=== PATIENT | male | born 1975 | race Caucasian/White ===

== ENCOUNTER 2019-12-23 10:42 | Outpatient (CLI) | payer MEDICAID, SELFPAY ==
--- NOTE | 2019-12-23 10:49 | XRR_ITS ---
PROCEDURE INFORMATION: Exam: XR Chest, 2 Views Exam date and time: 12/23/2019 10:59 AM Age: 44 years old Clinical indication: Other: Chronic chest congestion; Additional info: Chronic chest congestion x 3 weeks TECHNIQUE: Imaging protocol: XR of the chest Views: 2 views. COMPARISON: No relevant prior studies available. FINDINGS: Lungs: Unremarkable. No consolidation. Pleural space: Unremarkable. No pleural effusion. No pneumothorax. Heart/Mediastinum: Unremarkable. No cardiomegaly. Bones/joints: Unremarkable. XR/XR chest 2V* [id number] IMPRESSION: No acute findings.
== END 2019-12-23 10:43 | disposition home or self-care (01) ==
PROVIDERS: Visit Provider Family Medicine
DX: R09.89 Other specified symptoms and signs involving the circulatory and respiratory systems (principal)
CPT/HCPCS: 71046

== ENCOUNTER 2020-06-04 16:09 | Outpatient (CLI) | payer MEDICAID, SELFPAY ==
--- NOTE | 2020-06-04 16:16 | XR_ITS ---
WS: [id number] Chest 2 views, 06/04/2020 Clinical Data: ALLERGIC RHINITIS DUE TO POLLEN-COUGH Comparison: PA and lateral chest, 12/23/2019. Findings: No nodules, masses or effusions are seen. The heart is normal. The pulmonary vascularity is not increased. No pneumonia or pneumothorax is seen. XR/XR chest 2V* [id number] Impression: Negative chest.
== END 2020-06-04 16:10 | disposition home or self-care (01) ==
LOC: RAD 16:12
PROVIDERS: PCP Family Medicine; Visit Provider Otolaryngology
DX: J30.1 Allergic rhinitis due to pollen (principal); R05 Cough
CPT/HCPCS: 71046

== ENCOUNTER 2020-07-15 12:59 | Outpatient (CLI) | payer MEDICAID, SELFPAY ==
--- NOTE | 2020-07-15 14:23 | PFTS_ITS ---
Date of Study:07/15/20 Date of Dictation: MECHANICS: Forced vital capacity (FVC) is reduced. Forced expiratory volume in one second (FEV1) is normal. FEV1/FVC is normal. FLOW VOLUME LOOP: Normal. LUNG VOLUMES: Total lung capacity (TLC) is . Residual volume (RV) is normal. DIFFUSING CAPACITY FOR CARBON MONOXIDE: . INTERPRETATION: Spirometry is consistent with minimal restriction. This is not supported by the normal lung volumes. This could qualify as nonspecific ventilatory limitation. Lung volumes are normal. Gas exchange (DLCO) is normal. MTDD
== END 2020-07-15 13:00 | disposition home or self-care (01) ==
LOC: RT 13:02
PROVIDERS: PCP Family Medicine; Visit Provider Specialist
DX: J30.1 Allergic rhinitis due to pollen (principal); R05 Cough
CPT/HCPCS: 94010; 94726; 94729

== ENCOUNTER → 2020-07-24 10:30 | Outpatient (BNVA) | payer MEDICAID, SELFPAY | PROVIDERS: PCP Family Medicine; Visit Provider Internal Medicine | DX: M06.9 Rheumatoid arthritis, unspecified (principal); D86.9 Sarcoidosis, unspecified; M32.9 Systemic lupus erythematosus, unspecified; Z79.52 Long term (current) use of systemic steroids | CPT/HCPCS: 99214 ==

== ENCOUNTER 2020-07-24 11:43 | Outpatient (CLI) | payer MEDICAID, SELFPAY ==
--- NOTE | 2020-07-24 11:50 | XR_ITS ---
WS: [id number] Left foot, 2 views, 07/24/2020 Clinical Data: foot pain Comparison: None. Findings: No fractures or dislocations are seen. No bone destruction or erosion is noted. The joint spaces and soft tissues are normal. No periarticular demineralization or calcifications are seen. XR/XR foot LT 2V [id number] Impression: Negative left foot.
--- NOTE | 2020-07-24 11:50 | XR_ITS ---
WS: [id number] Right foot, 2 views, 07/24/2020 Clinical Data: foot pain Comparison: Right foot, 01/10/2019 Findings: No fractures or dislocations are seen. No bone destruction or erosion is noted. The joint spaces and soft tissues are normal. No periarticular demineralization or calcifications are seen. XR/XR foot RT 2V [id number] Impression: Negative right foot.
--- NOTE | 2020-07-24 11:50 | XR_ITS ---
WS: [id number] Left hand, 2 views, 07/24/2020 Clinical Data: hand pain Comparison: Left hand, 01/10/2019 Findings: No fractures or dislocations are seen. The soft tissues are unremarkable. The joint spaces are normal No periarticular demineralization or calcifications are seen. XR/XR hand LT 2V [id number] Impression: Negative left hand.
--- NOTE | 2020-07-24 11:50 | XR_ITS ---
WS: [id number] Right hand, 2 views, 07/24/2020 Clinical Data: hand pain Comparison: Right hand, 01/10/2019. Findings: No fractures or dislocations are seen. The soft tissues are unremarkable. The joint space s are normal No periarticular demineralization or calcifications are seen. XR/XR hand RT 2V [id number] Impression: Negative right hand.
[2020-07-24 14:22] LABS: Hepatitis B Core AB, Total Non-Reactive (Nonreactive); Hepatitis B Surface Antigen Non-Reactive (Nonreactive); Hepatitis C Virus Antibody Non-Reactive (Nonreactive)
[2020-07-27 11:47] LABS: COMPLEMENT COMPONENT C3C 160 mg/dL (82-185); COMPLEMENT COMPONENT C4C 32 mg/dL (15-53); Quantiferon Mitogen >10.00 IU/mL; Quantiferon Nil 0.01 IU/mL; Quantiferon Plus TB1 0.01 IU/mL; Quantiferon Plus TB2 0.01 IU/mL; Quantiferon TB Gold NEGATIVE (NEGATIVE)
[2020-07-27 12:47] LABS: COMPLEMENT, TOTAL (CH50) >60 U/mL (31-60)
[2020-07-27 14:13] LABS: Cyclic Citrullinated Peptide 81 UNITS
[2020-07-28 14:28] LABS: ANA SCREEN, IFA NEGATIVE (NEGATIVE)
[2020-07-28 14:58] LABS: CENTROMERE B ANTIBODY <1.0 NEG AI (<1.0 NEG); JO-1 ANTIBODY <1.0 NEG AI (<1.0 NEG); RNP ANTIBODY <1.0 NEG AI (<1.0 NEG); SCL-70 ANTIBODY <1.0 NEG AI (<1.0 NEG); SJOGREN'S ANTIBODY (SS-A) <1.0 NEG AI (<1.0 NEG); SM ANTIBODY <1.0 NEG AI (<1.0 NEG); THYROID PEROXIDASE ANTIBODIES 7 IU/mL (<9)
[2020-08-02 05:52] LABS: DNA AB (DS) CRITHIDIA,IFA NEGATIVE (NEGATIVE)
== END 2020-07-24 11:44 | disposition home or self-care (01) ==
LOC: RAD 11:47
PROVIDERS: PCP Family Medicine; Visit Provider Internal Medicine
DX: M06.9 Rheumatoid arthritis, unspecified (principal); Z51.81 Encounter for therapeutic drug level monitoring; M32.9 Systemic lupus erythematosus, unspecified; D86.9 Sarcoidosis, unspecified; M79.642 Pain in left hand; M79.641 Pain in right hand; M79.672 Pain in left foot; M79.671 Pain in right foot
CPT/HCPCS: 36415; 73120; 73620; 86431; 86480; 86704; 86803; 87340

== ENCOUNTER 2021-04-16 11:13 | Outpatient (CLI) | payer MEDICAID, SELFPAY ==
--- NOTE | 2021-04-16 11:20 | XR_ITS ---
WS: [id number] Right shoulder, 2 views, 04/16/2021 Clinical Data: BILATERAL SHOULDER PAIN Comparison: Right shoulder, 01/10/2019. Findings: No fractures or dislocations are seen. The AC joint shows mild osteoarthritis with a calcification in the superior aspect of the joint space. The adjacent right clavicle, right scapula and ribs are norm al. The soft tissues are unremarkable. XR/XR shoulder RT min 2V* [id number] Impression: 1. Negative right shoulder. 2. 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
--- NOTE | 2021-04-16 11:20 | XR_ITS ---
WS: [id number] Left shoulder, 2 views, 04/16/2021 Clinical Data: BILATERAL SHOULDER PAIN Comparison: Left shoulder, 01/10/2019. Findings: No fractures or dislocations are seen. The AC joint is normal. The adjacent left clavicle, left scapu la and ribs are normal. The soft tissues are unremarkable. XR/XR shoulder LT min 2V* [id number] Impression: Negative left shoulder.
== END 2021-04-16 11:14 | disposition home or self-care (01) ==
PROVIDERS: PCP Family Medicine; Visit Provider Family Medicine
DX: M25.511 Pain in right shoulder (principal); M25.512 Pain in left shoulder
CPT/HCPCS: 73030

== ENCOUNTER → 2021-06-10 10:27 | Outpatient (BNVA) | payer MEDICAID, SELFPAY | PROVIDERS: PCP Family Medicine; Visit Provider Internal Medicine | DX: M06.9 Rheumatoid arthritis, unspecified (principal); Z79.899 Other long term (current) drug therapy | CPT/HCPCS: 99213; 99214 ==

== ENCOUNTER → 2021-10-13 12:37 | Outpatient (BNVA) | payer MEDICAID, SELFPAY | PROVIDERS: PCP Family Medicine; Visit Provider Internal Medicine | DX: M16.9 Osteoarthritis of hip, unspecified (principal); M05.9 Rheumatoid arthritis with rheumatoid factor, unspecified; Z79.899 Other long term (current) drug therapy; Z87.891 Personal history of nicotine dependence | CPT/HCPCS: 99214 ==

== ENCOUNTER → 2021-12-06 13:18 | Outpatient (BNVA) | payer MEDICAID, SELFPAY | PROVIDERS: PCP Family Medicine; Visit Provider Internal Medicine Critical Care Medicine | DX: J98.4 Other disorders of lung (principal); G47.33 Obstructive sleep apnea (adult) (pediatric); M06.9 Rheumatoid arthritis, unspecified; Z87.891 Personal history of nicotine dependence | CPT/HCPCS: 99204 ==

== ENCOUNTER → 2022-02-02 14:47 | Outpatient (BNVA) | payer MEDICAID, SELFPAY | PROVIDERS: PCP Family Medicine; Visit Provider Internal Medicine | DX: M16.9 Osteoarthritis of hip, unspecified (principal); M05.9 Rheumatoid arthritis with rheumatoid factor, unspecified; Z79.899 Other long term (current) drug therapy; Z87.891 Personal history of nicotine dependence | CPT/HCPCS: 80053; 85025; 85651; 86140; 99214 ==

== ENCOUNTER → 2022-03-07 10:46 | Outpatient (BNVA) | payer MEDICAID, SELFPAY | PROVIDERS: PCP Family Medicine; Visit Provider Internal Medicine Critical Care Medicine | DX: J98.4 Other disorders of lung (principal); G47.33 Obstructive sleep apnea (adult) (pediatric); M06.9 Rheumatoid arthritis, unspecified; Z87.891 Personal history of nicotine dependence; F12.90 Cannabis use, unspecified, uncomplicated | CPT/HCPCS: 71046; 99214 ==

== ENCOUNTER 2022-03-09 11:35 | Outpatient (CLI) | payer MEDICAID, SELFPAY ==
--- NOTE | 2022-03-09 11:47 | XR_ITS ---
WS: [id number] Exam: XR chest 2V* [id number] Date/Time of Exam: 03/09/2022 11:47 AM Reason For Exam: Shortness of breath Comparison 06/04/2029 The lungs are fully expanded and clear. Normal cardiomediastinal silhouette. No pleural effusions. Se veral calcified granulomas noted bilaterally. Bony structures are intact. XR/XR chest 2V* [id number] IMPRESSION: 1. No acute cardiopulmonary finding. No change.
== END 2022-03-09 11:36 | disposition home or self-care (01) ==
LOC: RAD 11:41
PROVIDERS: PCP Family Medicine; Visit Provider Internal Medicine Critical Care Medicine
DX: J98.4 Other disorders of lung (principal)
CPT/HCPCS: 71046

== ENCOUNTER → 2022-05-09 14:32 | Outpatient (BNVA) | payer MEDICAID, SELFPAY | PROVIDERS: PCP Family Medicine; Visit Provider Internal Medicine | DX: M05.9 Rheumatoid arthritis with rheumatoid factor, unspecified (principal); M16.9 Osteoarthritis of hip, unspecified | CPT/HCPCS: 99213; 99214 ==

== ENCOUNTER → 2022-09-05 14:14 | Outpatient (BNVA) | payer MEDICAID, SELFPAY | PROVIDERS: PCP Family Medicine; Visit Provider Internal Medicine | DX: M16.9 Osteoarthritis of hip, unspecified (principal); M05.9 Rheumatoid arthritis with rheumatoid factor, unspecified; Z87.891 Personal history of nicotine dependence; E66.3 Overweight; Z68.42 Body mass index [BMI] 45.0-49.9, adult | CPT/HCPCS: 80053; 85025; 85651; 86140; 99213 ==

== ENCOUNTER → 2022-12-07 16:19 | Outpatient (BNVA) | payer MEDICAID, SELFPAY | PROVIDERS: PCP Family Medicine; Visit Provider Internal Medicine Pulmonary Disease | DX: T78.40XA Allergy, unspecified, initial encounter (principal); J98.4 Other disorders of lung; J44.9 Chronic obstructive pulmonary disease, unspecified | CPT/HCPCS: 36415; 82785; 85025; 86003; 99214 ==

== ENCOUNTER → 2023-02-21 13:39 | Outpatient (BNVA) | payer MEDICAID, SELFPAY | PROVIDERS: Visit Provider Internal Medicine | DX: J98.4 Other disorders of lung (principal); M05.9 Rheumatoid arthritis with rheumatoid factor, unspecified; M16.9 Osteoarthritis of hip, unspecified | CPT/HCPCS: 99214 ==

== ENCOUNTER 2023-06-06 12:44 | Outpatient (CLI) | payer MEDICAID, SELFPAY ==
[2023-06-06 13:14] VITALS: PULSE 83; RESP 18; O2SAT 98
[2023-06-06] MEDS: albuterol 2.5 mg/3 mL Neb INHALATION (13:14)
[2023-06-06 13:19] VITALS: PULSE 83
== END 2023-06-06 12:45 | disposition home or self-care (01) ==
PROVIDERS: Visit Provider Internal Medicine Pulmonary Disease
DX: R06.02 Shortness of breath (principal)
CPT/HCPCS: 94060; 94618; 94726; 94729

== ENCOUNTER → 2023-07-14 10:50 | Outpatient (BNVA) | payer MEDICAID, SELFPAY | PROVIDERS: Visit Provider Internal Medicine Pulmonary Disease | DX: J98.4 Other disorders of lung (principal); R60.9 Edema, unspecified; J44.9 Chronic obstructive pulmonary disease, unspecified; G47.33 Obstructive sleep apnea (adult) (pediatric); M06.9 Rheumatoid arthritis, unspecified; R09.02 Hypoxemia; Z99.89 Dependence on other enabling machines and devices; F17.210 Nicotine dependence, cigarettes, uncomplicated; M25.552 Pain in left hip; E66.9 Obesity, unspecified; Z68.42 Body mass index [BMI] 45.0-49.9, adult | CPT/HCPCS: 99214 ==

== ENCOUNTER 2023-07-28 11:08 | Outpatient (CLI) | payer MEDICAID, SELFPAY ==
--- NOTE | 2023-07-28 11:45 | USCV_ITS ---
Giovanni Flores Age: 47 Gender: M : 1975 Exam Date: 07/28/2023 11:26 Ordering Phys: Lencho Zuniga MD Technologist: Aquilino Fischer [place]am [place] [facility] [place]ication: assess LV function BP: 128 / 98 HR: 71 Rhythm: Sinus Technical Quality: Adequate MEASUREMENTS (Male / Female) Normal Values 2D ECHO LVOT Diameter 2.5 cm LV Ejection Fraction MOD 2C 67.6 % LV Ejection Fraction 2C AL 70.5 % LA Diameter 4.0 cm LA Width 3.6 cm LA Height 5.3 cm RA Width 3.3 cm RA Height 5.0 cm Aorta at Sinotubular Diameter 2.8 cm M-MODE Aortic Annulus Diameter 2.8 cm LA Ao Ratio MM 1.3 MV E Point Septal Separation 0.4 cm DOPPLER AV Peak Velocity 108.0 cm/s LVOT Peak Velocity 79.0 cm/s AV Area Cont Eq vti 3.4 cm squared AV Area Cont Eq pk 3.6 cm squared MV Peak Velocity 82.0 cm/s MV Area PHT 5.8 cm squared Mitral E to A Ratio 1.0 MV E' Velocity 38.5 cm/s Mitral E to MV E' Ratio 6.6 Mitral E to LV E' Lateral Ratio 6.9 Mitral E to LV E' Septal Ratio 6.3 TR Peak Velocity 126.1 cm/s TR Peak Gradient 6.4 mmHg TR Mean Velocity 93.8 cm/s TR Mean Gradient 3.7 mmHg TR Velocity Time Integral 22.3 cm Right Atrial Pressure 8.0 mmHg Pulmonary Artery Systolic Pressu 14.4 mmHg PV Peak Velocity 125.7 cm/s RV Acceleration Time 0.1 s RV Ejection Time 0.3 s RV AcT/ET 0.2 FINDINGS Left Ventricle Technically limited quality echocardiogram because of poor ultrasonic windows. Left ventricle is normal in size. LV systolic function is normal with EF of 55-60 %. No regional wall motion abnormalities are seen. Right Ventricle Normal in size and function Right Atrium Normal in size Left Atrium Normal in size Mitral Valve Structurally normal mitral valve. Trace mitral regurgitation Aortic Valve Grossly normal. No significant stenosis or regurgitation seen. Tricuspid Valve Trace tricuspid regurgitation. Insufficient TR jet to calculate RVSP. Pulmonic Valve Not well-visualized Pericardium Normal Aorta Normal in size IVC Not well visualized CONCLUSIONS Technically limited quality echocardiogram because of poor ultrasonic windows. LV systolic function is normal with EF of 55 to 60%. Trace mitral regurgitation. Trace tricuspid regurgitation. No comparison studies are available Bob Valdez MD (Electronically Signed) Final Date: 30 July 2023 12:18 S
== END 2023-07-28 11:09 | disposition home or self-care (01) ==
LOC: CDL 11:08
PROVIDERS: Visit Provider Internal Medicine Pulmonary Disease
DX: R06.02 Shortness of breath (principal); R60.9 Edema, unspecified
CPT/HCPCS: 93306

== ENCOUNTER → 2023-08-29 14:12 | Outpatient (BNVA) | payer MEDICAID, SELFPAY | PROVIDERS: Visit Provider Internal Medicine | DX: M05.9 Rheumatoid arthritis with rheumatoid factor, unspecified (principal); M16.9 Osteoarthritis of hip, unspecified | CPT/HCPCS: 99214 ==

== ENCOUNTER → 2023-09-08 09:58 | Outpatient (BNVA) | payer MEDICAID, SELFPAY | PROVIDERS: Visit Provider Internal Medicine Pulmonary Disease | DX: J44.9 Chronic obstructive pulmonary disease, unspecified (principal); J98.4 Other disorders of lung; G47.33 Obstructive sleep apnea (adult) (pediatric); R09.02 Hypoxemia; Z99.89 Dependence on other enabling machines and devices; E66.01 Morbid (severe) obesity due to excess calories; Z68.42 Body mass index [BMI] 45.0-49.9, adult | CPT/HCPCS: 99214 ==

== ENCOUNTER 2023-11-20 07:23 | Outpatient (CLI) | payer MEDICAID, SELFPAY ==
--- NOTE | 2023-11-20 | ECG_ITS ---
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 Interpretive Statements NAME OF STUDY: LEXISCAN SESTAMIBI STRESS TEST INDICATION: Shortness of Breath on Exertion PROCEDURE: At the baseline, the EKG revealed normal sinus rhythm with a poor R wave progression. Some nonspecific T wave changes.. The baseline heart was 70 bpm with a blood pressue of 151/110 mm of Hg Lexiscan was infused over a period of 20 seconds. A total of 0.4 milligrams of Lexiscan was infused. The stress phase was continued for a total of 5 minutes. Heart rate at the end of the stress phase was 81 bpm with a blood pressure 156/104 mm of Hg. The EKG at the peak infusion revealed no significant changes. Sestamibi was injected 20 seconds after the Lexiscan infusion. Heart rate at the end of the recovery phase was 81 bpm with a blood pressure of 156/104 mm of Hg. CONCLUSION: 1. No significant EKG changes with the LexiScan infusion 2. No LexiScan induced chest pain or cardiac arrhythmia 3. Normal blood pressure and heart rate response 4. Sestamibi/sestamibi perfusion scan pending; see separate report. Electronically Signed On 11-25-2023 14:35:20 PHYSIOTHERAPY ASSISTANT by Paige Murrell M.D. [id number]
[2023-11-20 07:56] VITALS: BMI 51.5
--- NOTE | 2023-11-20 08:01 | NMCV_ITS ---
NM mendez perf SPECT r/s* [id number] Giovanni Flores Age: 47 Gender: M : 1975 Exam Date: 11/20/2023 08:31 Ordering Phys: Lencho Zuniga MD Technologist: AD Gomez Exam Location: [facility] [place] Indications: SHORTNESS OF BREATH STRESS TEST Please see separate stress test report in [facility] for full findings IMAGE PROTOCOL Rest/Stress 1 Lexiscan Day Radiopharmaceutical Dose (mCi) Administration Site Administered by Rest: Tc-99m 10.6 IV AD Crocker Sestamibi Stress:Tc-99m 33.0 IV AD Crocker Sestamibi Rest: 20-Nov-2023 60 Discovery 630 Stress: 20-Nov-2023 30 Discovery 630 0.4mg Lexiscan. Supine position only as patient was unable to lay prone. SPECT RESULTS Technical Quality: Good Raw Data Analysis: Normal Image Corrections: No attenuation or motion correction applied Summed Stress Score: 3 Summed Rest Score: 3 Summed Difference Score: 0 PERFUSION FINDINGS A small area of decreased tracer uptake was noted in the anteroseptal and apical lateral regions. Significant reversibility was noted in these regions at rest. With the SPECT imaging. However with the polar plot, no sign of reversibility was noted FUNCTIONAL RESULTS (calculated via Gated SPECT) Stress Image LV EF (%): 49 Stress EDV (mL):138 TID: 1.04 Stress ESV (mL):70 FUNCTIONAL FINDINGS: Segmental wall motion analysis revealed mild diffuse hypokinesia of the apical region. The LV volume was found to be elevated IMPRESSIONS 1. Myocardial perfusion imaging revealing small areas of reversible defects involving the anteroseptal and apical lateral regions with significant reversibility suggesting ischemia in the distribution of the left anterior descending artery and circumflex artery. However because of the inconsistency the reliability is somewhat questionable. 2. Slightly diminished LV ejection fraction of 49%. 3. LV wall motion analysis revealed mild diffuse hypokinesia of the LV apex 4. Mildly dilated LV cavity No similar previous studies are available for comparison. Clinical correlation is recommended Dr Paige Murrell MD [facility] (Electronically Signed) Final Date: 20 November 2023 11:15 S
[2023-11-20] MEDS: regadenoson 0.4 Mg/5 ml Syringe 0.400000000000000022 MG IVP (09:16)
[2023-11-20 09:27] VITALS: BP 145/105; PULSE 72
== END 2023-11-20 07:24 | disposition home or self-care (01) ==
PROVIDERS: Visit Provider Internal Medicine Pulmonary Disease
DX: R06.02 Shortness of breath (principal); R93.1 Abnormal findings on diagnostic imaging of heart and coronary circulation; I51.7 Cardiomegaly
CPT/HCPCS: 36415; 78452; 93017; 96374; A9500; J2785

== ENCOUNTER → 2024-01-03 13:30 | Outpatient (BNVA) | payer MEDICAID, SELFPAY | PROVIDERS: Visit Provider Internal Medicine | DX: R07.9 Chest pain, unspecified (principal); R94.39 Abnormal result of other cardiovascular function study; R06.09 Other forms of dyspnea; G47.33 Obstructive sleep apnea (adult) (pediatric); Z87.891 Personal history of nicotine dependence; R94.31 Abnormal electrocardiogram [ECG] [EKG] | CPT/HCPCS: 93005; 99204 ==

== ENCOUNTER 2024-01-10 14:10 | Outpatient (CLI) | payer MEDICAID, SELFPAY ==
[2024-01-10 15:17] LABS: Basophils % 0.2 %; Eosinophils # 0.1 10^3/uL (0.0-0.8); Eosinophils % 1.4 %; Lymphocytes # 2.4 10^3/uL (0.8-4.8); Lymphocytes % 29.8 %; Mean Corpuscular HGB Conc 33.8 g/dL (30-55); Mean Corpuscular Hemoglobin 29.4 pg (27-33); Mean Platelet Volume 9.3 fL (7.4-10.4); Monocytes # 0.8 10^3/uL (0.2-0.9); Monocytes % 9.6 %; Neutrophils # 4.72 10^3/uL (1.8-7.7); Neutrophils % 58.6 %; Nucleated Red Blood Cells % 0 %; Platelet Count 276 10^3/cmm (157-399); Red Cell Distribution Width 13.7 % (12.1-15.1); White Blood Count 8.05 10^3/uL (3.29-11.43)
[2024-01-10 15:31] LABS: INR 0.97 (0.83-1.21); Prothrombin Time (Patient) 13.2 Seconds (12.0-15.1)
[2024-01-10 15:43] LABS: Blood Urea Nitrogen 15 mg/dL (6-20); Calcium 9.2 mg/dL (8.5-10.5); Carbon Dioxide 22 mmol/L (22-29); Chloride 105 mmol/L (98-107); Glomerular Filtration Rate 79.8 mL/min (90-130); Glucose 100 mg/dL (65-115); Osmolality Calculated 287 mOsm/kg (285-295); Sodium 138 mmol/L (136-145)
[2024-01-10 19:02] LABS: Anion Gap 15.2 (5-19); Potassium 4.2 mmol/L (3.5-5.1)
== END 2024-01-10 14:11 | disposition home or self-care (01) ==
LOC: LAB 14:11
PROVIDERS: Visit Provider Internal Medicine
DX: R94.39 Abnormal result of other cardiovascular function study (principal); R06.09 Other forms of dyspnea; Z79.899 Other long term (current) drug therapy
CPT/HCPCS: 36415; 80048; 85025; 85610

== ENCOUNTER 2024-01-12 06:03 | Outpatient (CLI) | payer MEDICAID, SELFPAY ==
[2024-01-12] VITALS (19 sets, daily range): BP systolic 113–164; BP diastolic 82–118; PULSE 66–83; RESP 16–22; TEMP 36.9; O2SAT 92–95; BMI 51.5
--- NOTE | 2024-01-12 06:00 | XACV_ITS ---
Exam Room: 2 Ht: 178 cm Wt: 163 kg BSA: 2.93 m2 Gender: Male : 1975 Any Known Allergies: No known allergies Exam Priority: Routine Procedure(s): Procedure Description: Diagnostic procedure Procedure Description: Left Heart Catheterization Procedure Description: Right Heart Catheterization Procedure Description: Left ventriculography Procedure Description: O2 saturation Procedure Description: Coronary Angiography Diagnostic Cath Status: Elective Diagnostic Findings * INDICATION: Chest pain/dyspnea on exertion/abnorma stress test. * Circumflex has no significant disease. * Left Main has no disease. * Right Coronary Artery has no disease. * Proximal Left Anterior Descending: minimal 30% stenosis, RORY: 3 flow. * Coronary angiography shows right dominance. Conclusions 1. Severely elevated right and left-sided cardiac pressures. 2. Moderate post capillary pulmonary hypertension. 3. There is minimal coronary artery disease with one vessel disease. 4. Normal left ventricular systolic function. Ejection fraction of 55%. Recommendations * Aggressive risk factor modification. * We will uptitrate diuretic therapy. As outpatient will need to have continued up titration. Severely elevated right and left-sided cardiac pressures. * Outpatient cardiology follow up in 2 weeks. Interventional RX Recommendation: medical therapy and/or counseling Diagnostic RX Recommendation: medical therapy and/or counseling Anticoagulation: Heparin Ventriculography Ejection Fraction: 55.0 % Pressures Phase:Rest AO : 248 / 163 ( 165 ) @ 8:42:00 AM 155 / 96 ( 122 ) @ 8:48:00 AM 155 / 96 ( 122 ) @ 8:48:00 AM LV : 165 / 0 / 23 @ 8:47:00 AM 168 / 6 / 29 @ 8:48:00 AM 167 / 5 / 28 @ 8:48:00 AM RV : 55 / 20 / 26 @ 8:35:00 AM PA : 47 / 28 ( 37 ) @ 8:34:00 AM RA : a wave = 33 v wave = 23 mean = 21 @ 8:36:00 AM PCW : a wave = 29 v wave = 28 mean = 26 @ 8:34:00 AM O2 Content Phase:Rest PA : O2 Content O2: 70.4 @ 8:48:00 AM Saturations Phase:Rest AO : 95 @ 8:42:00 AM PA : 70 @ 8:48:00 AM Cardiac Output Phase:Rest Susy : 6 @ 12:55:41 PM Susy Cardiac Index: 2 @ 12:55:41 PM Flow Phase:Rest Qp : 6 @ 12:55:41 PM Qs : 6 @ 12:55:41 PM Valves Phase:DefaultPhase AV : 12.0 @ 12:55:41 PM 12.0 @ 12:55:41 PM AV Mean Gradient: 15.0 @ 12:55:41 PM 15.0 @ 12:55:41 PM AV Flow: 317 @ 12:55:41 PM AV Area: 1.9 @ 12:55:41 PM AV Area Index: 0.69 @ 12:55:41 PM Clinical Evaluation EBL: 5mL-10mL Procedural Details Pre-Procedure Time Out. Identified patient by full name and date of as verbalized by the patient/guarantor. Does the consent match the physician's order: Yes. Accurate & Complete Informed Consent: Yes. Inpatient/Outpatient History & Physical on Chart: Yes. If H&P is completed, is and addenduem needed: No; If yes, is the addendum complete: N/A. Visualize and Verify Site with Patient/Guarantor: N/A. Relevant Radiology Images available: Yes. Pre-op teaching completed and patient verbalized understanding. The risks, benefits, and alternatives of sedation and/or procedure were discussed by physician. The patient agrees to continue. Procedure started. [facility] Clinical Fraility Score: 3: Managing Well. 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 Chest Pain Symptom Assessment: Non-anginal Chest Pain. Correct patient, site and procedure confirmed by cath team. PERRLA. Strong, equal hand innersole maker bilaterally. Lungs clear x 5 lobes. IV Site on Arrival: 20 gauge in the right anticubital. IV Site on Arrival: 20 gauge in the left anticubital. IV Fluids: 0.9% NaCl at KVO. 0 mL infused prior to boat laborer. Pre Procedural Pulses: right dorsalis pedis was Doppled. Pre Procedural Pulses: left dorsalis pedis was 2+. Pre Procedural Pulses: bilateral posterior tibial was Doppled. Pre Procedural Pulses: bilateral radial was 1+. right groin was prepped with chloroprep then draped in the usual sterile fashion. right radial was prepped with chloroprep then draped in the usual sterile fashion. right brachial was prepped with chloroprep then draped in the usual sterile fashion. Baseline sample Acquired. HR: 64 BPM. Physician arrived. Physician scrubbed in. Immediate Pre-Procedure Time Out. Correct Patient: Yes; Correct Procedure: Yes; Correct Site: Yes; Correct Patient Position: Yes; Correct Supplies: Yes; Dried Flammable Prep: Yes; Blood Products Available: N/A;. Sheath wire inserted through the right brachial IV catheter. IV catheter removed OTW. Lidocaine 1% infiltrated to the right brachial. Sterrett-Amaury MON catheter inserted. Oximetry samples were obtained. Normal venous range: 60-85%. Normal arterial range: 95-100%. Pressure measurements obtained. Sterrett-Amaury out. Lidocaine 1% infiltrated to the right radial. Arterial access obtained. A 5 [place] TIG catheter in over wire. Multiple views taken of right coronary artery. Catheter redirected to the LCA. Multiple views taken of left coronary artery. Catheter removed over the exchange wire. A 5 [place] Angled Pig catheter in over wire. Oxygen started at 3liters/min via nasal canula. EDP Sample taken: LV 165/0,23; HR: 71 BPM; SpO2: 96%. LV gram performed in ROTH @ 10 mL/second for a total of 30 mL. EDP Sample taken: LV 168/6,29; HR: 74 BPM; SpO2: 97%. Pullback taken: LV 167/5,28; AO 155/96(122); Mean: 15mmHg, Peak to Peak: 12mmHg, SEP: 19sec/min; HR: 73 BPM; SpO2: 96%. Catheter removed over the exchange wire. A TR Band was successful obtaining hemostatsis at the Right Radial artery insertion site. A Manual Compression was successful obtaining hemostatsis at the Right Brachial Vein insertion site. Post Procedure: Pulses reassessed and unchanged. PERRLA. Strong, equal hand innersole maker bilaterally. No VTE prophylaxis required. Complications: None. Medication's Wasted: Lidocaine 1% = 15 mL. Medication's Wasted: Heparin = 1000 units. Medication's Wasted: Nitro = 49.8 mg. Total IV fluids: 37 mL. Estimated blood loss: 5mL-10mL. Responsiveness - Normal response to verbal stimuli; alert and oriented, PERRLA. Airway - Unaffected, no intervention required; spontaneous ventilation. Circulation: W/N/L, pulses unchanged. Nausea/Vomiting: No. Procedure completed. Patient transferred by wheelchair to CPRU. Vital chart was stopped. Access Site Site: Right Brachial Vein Sheath Size: 6 Fr Hemostasis Method: Manual Compression Hemostasis Success: Successful Site: Right Radial artery Sheath Size: 6 Fr Hemostasis Method: TR Band Hemostasis Success: Successful Procedure Medications Start: 7:20 AM Stop: 7:20 AM Medication: Versed Amount: 1 mg Route: I.V. Start: 7:21 AM Stop: 7:21 AM Medication: Fentanyl Amount: 25 mcg Route: I.V. Start: 7:29 AM Stop: 7:29 AM Medication: Fentanyl Amount: 25 mcg Route: I.V. Start: 7:38 AM Stop: 7:38 AM Medication: Nitrogylcerin Amount: 200 mcg Route: I.A. Start: 7:41 AM Stop: 7:41 AM Medication: Heparin Amount: 5000 units Route: I.V. Start: 7:46 AM Stop: 7:46 AM Medication: Versed Amount: 1 mg Route: I.V. Start: 7:46 AM Stop: 7:46 AM Medication: Fentanyl Amount: 25 mcg Route: I.V. Start: 7:48 AM Stop: 7:48 AM Medication: Fentanyl Amount: 25 mcg Route: I.V. I, the attending physician, have reviewed and verified all procedure medications. Yes, all medications given per verbal order History/Risk Factors Hypertension: No Dyslipidemia: No Peripheral Arterial Disease (PAD): No Myocardial Infarction ([place]): No Obesity: Yes Renal Disease: No Tobacco Use: Former Prior Interventions PCI: No CABG: No Valve Surgery: No Report Signatures Finalized by Bob Valdez MD on 01/14/2024 10:14 PM
[2024-01-12] MEDS: aspirin 325 mg Tablet PO (06:30)
[2024-01-12] MEDS: diphenhydrAMINE 50 mg Capsule PO (06:30)
--- NOTE | 2024-01-12 07:14 | W.PM.OPSUD ---
Surgery/Procedure H&P Update DATE OF PROCEDURE: January 12, 2024 DATE H&P PERFORMED: 01/03/24 H&P UPDATE INFORMATION: I have reviewed H&P completed within last 30 days, I have examined patient prior to procedure and No changes to prior documentation PREOP DIAGNOSIS: Chest pain/ Abnormal stress test PRIMARY INDICATION FOR PROCEDURE: Chest pain/ Abnormal stress test PLANNED PROCEDURE: Operation Date: 01/12/24 07:00 Proposed Procedures p Cardiac Catheterization(Bilateral) - Bob Valdez M.D Possible percutaneous coronary intervention PATIENT REASSESSED PRIOR TO SEDATION, WITH NO CHANGE NOTED: Yes PHYSICAL EXAM: alert, oriented x 3, clear to auscultation bilaterally and regular rate & rhythm AIRWAY EVAL/ANESTHESIA PLAN: normal airway, ASA III, Local Anesthesia, Risks, benefits & alternatives of sedation and/or procedure discussed and Patient agrees to continue as planned ADDITIONAL INFORMATION: Moderate sedation
[2024-01-12 07:54] LABS: Alveolar-Arterial Oxygen Gradi 3.5 mmHg (5-10); Arterial Blood Gas Hematocrit 43.2 % (42-52); Blood Gas Operator Identificat MONRO; Blood Gas Sample Type Arterial; Carboxyhemoglobin 2.6 %THgb (0.4-20.1); HGB O2 Sat 91.8 % (95-100); Methemoglobin 0.4 % (0.4-1.5); Total Hemoglobin 14.1 g/dL (14-18)
[2024-01-12 07:55] LABS: Oxygen Device ROOM AIR
[2024-01-12 07:57] LABS: Alveolar-Arterial Oxygen Gradi 6.7 mmHg (5-10); Arterial Blood Gas Hematocrit 46.5 % (42-52); Blood Gas Allen Test Pos; Blood Gas Operator Identificat MONRO; Blood Gas Sample Type Not specified; Carboxyhemoglobin 2.8 %THgb (0.4-20.1); HGB O2 Sat 68.1 % (95-100); Methemoglobin 0.4 % (0.4-1.5); Oxygen Device ROOM AIR; Total Hemoglobin 15.2 g/dL (14-18)
--- NOTE | 2024-01-12 08:00 | PC.NURSE ---
Recovery Note Patient arrived to CPRU 3 post cath procedure. Pt arrived alert and oriented. Breathing even and non-labored on room air. Denies CP. Radial radial has TR band in place. Site asymptomatic. No bleeding or hematoma noted. Right brachial vein has compression bandage, site asymptomatic. No bleeding or hematoma noted. Radial pulse palpable. Pt placed on bedside shelter monitor.
--- NOTE | 2024-01-12 09:30 | PC.NURSE ---
HTN Dr. Valdez notified for BP maintaining 140-150/107. Pt does not take BP meds at home. Received verbal orders to administer Losartan 50mg PO X 1 dose if BP remains elevated.
[2024-01-12] MEDS: losartan 50 mg Tablet PO (09:57)
--- NOTE | 2024-01-12 11:00 | PC.NURSE ---
TR band removal note 0900- 2ml air removed from right radial TR band. Site asymptomatic. No signs or bleeding or hematoma. Radial pulse palpable. 0915- 2ml air removed from right radial TR band. Site asymptomatic. No signs or bleeding or hematoma. Radial pulse palpable. 0925- 2ml air removed from right radial TR band. Site asymptomatic. No signs or bleeding or hematoma. Radial pulse palpable. 0935- 2ml air removed from right radial TR band. Site asymptomatic. No signs or bleeding or hematoma. Radial pulse palpable. 0955- 2ml air removed from right radial TR band. Site asymptomatic. No signs or bleeding or hematoma. Radial pulse palpable. 1005- 1ml air removed from right radial TR band. Site asymptomatic. No signs or bleeding or hematoma. Radial pulse palpable. 1015- 1ml air removed from right radial TR band. Site asymptomatic. No signs or bleeding or hematoma. Radial pulse palpable. 1025- 1ml air removed from right radial TR band. Site asymptomatic. No signs or bleeding or hematoma. Radial pulse palpable. 1035- 2ml air removed from right radial TR band. Site asymptomatic. No signs or bleeding or hematoma. Radial pulse palpable. 1040- 1ml air removed from right radial TR band. Site asymptomatic. No signs or bleeding or hematoma. Radial pulse palpable. 1050- 2ml air removed from right radial TR band. Site asymptomatic. No signs or bleeding or hematoma. Radial pulse palpable. 1050- TR band deflated. Site asymptomatic. No signs of hematoma or bleeding. Placed clean band aid over site.
== END 2024-01-12 12:21 | disposition home or self-care (01) ==
PROVIDERS: PCP Nurse Practitioner Family; Visit Provider Internal Medicine
DX: I25.10 Atherosclerotic heart disease of native coronary artery without angina pectoris (principal); I27.20 Pulmonary hypertension, unspecified; E66.9 Obesity, unspecified; Z68.43 Body mass index [BMI] 50.0-59.9, adult; Z87.891 Personal history of nicotine dependence; G47.33 Obstructive sleep apnea (adult) (pediatric)
CPT/HCPCS: 36415; 82810; 93460; 96374; 96375; 99152; 99153; C1751; C1769; C1887; C1894; J1644; J2250; J3010; J3490; J7030; Q0163; Q9967

== ENCOUNTER → 2024-01-29 14:41 | Outpatient (BNVA) | payer MEDICAID, SELFPAY | PROVIDERS: PCP Nurse Practitioner Family; Visit Provider Nurse Practitioner Family | DX: I27.20 Pulmonary hypertension, unspecified (principal) | CPT/HCPCS: 36415; 80048; 99214 ==

== ENCOUNTER → 2024-03-12 11:54 | Outpatient (BNVA) | payer MEDICAID, SELFPAY | PROVIDERS: PCP Nurse Practitioner Family; Visit Provider Internal Medicine Pulmonary Disease | DX: J44.9 Chronic obstructive pulmonary disease, unspecified (principal); J98.4 Other disorders of lung; G47.33 Obstructive sleep apnea (adult) (pediatric); R09.02 Hypoxemia; R09.89 Other specified symptoms and signs involving the circulatory and respiratory systems | CPT/HCPCS: 99214 ==

== ENCOUNTER 2024-04-02 09:03 | Outpatient (CLI) | payer MEDICAID, SELFPAY ==
--- NOTE | 2024-04-02 09:15 | USCV_ITS ---
Giovanni Flores Age: 48 Gender: M : 1975 Exam Date: 04/02/2024 09:09 Ordering Phys: Lencho Zuniga MD Technologist: USR Exam Location: [facility] [place] Indication: abnormal pressures Risk Factors: Previous Vascular Surgery: Right BP: / Left BP: / RIGHT LEFT PSV PSV (cm/s) (cm/s) Waveform Waveform Subclavian Proximal 127.0 Triphasic 110.0 Subclavian Distal 97.0 Triphasic 88.0 Axillary 69.0 Triphasic Brachial Proximal 75.0 Triphasic Radial Proximal 56.0 Triphasic 66.0 Radial at Wrist Ulnar Proximal 61.0 Triphasic 70.0 Ulnar at Wrist FINDINGS Normal arterial Doppler waveforms and velocities in the left upper extremity Normal radial and ulnar artery Doppler waveforms in the right side Normal subclavian artery Doppler waveforms and velocities CONCLUSIONS Features suggesting no significant arterial obstruction in the left upper extremity Patent right radial and ulnar arteries with no signs of obstruction Dr Paige Murrell MD [facility] (Electronically Signed) Final Date: 02 April 2024 14:07 S
== END 2024-04-02 09:04 | disposition home or self-care (01) ==
PROVIDERS: PCP Nurse Practitioner Family; Visit Provider Internal Medicine Pulmonary Disease
DX: R09.89 Other specified symptoms and signs involving the circulatory and respiratory systems (principal)
CPT/HCPCS: 93930